=== PATIENT | male | born 1990 | race Caucasian/White ===

== ENCOUNTER 2020-10-17 22:31 | Emergency (ER) | payer OTHER, SELFPAY ==
[2020-10-17 22:47] VITALS: BP 141/89; PULSE 79; RESP 16; TEMP 36.1; O2SAT 96; BMI 47.3
--- NOTE | 2020-10-17 23:25 | ED.ABDPAIN ---
HPI - Abdominal Pain General Chief Complaint: Abdominal Pain Stated Complaint: abdominal pain Time Seen by Provider: 10/17/20 23:25 Source: patient Mode of arrival: ambulatory Limitations: no limitations History of Present Illness HPI narrative: Patient was moving a large rock 2 days ago noticed pain in the left lower abdomen without any significant swelling no nausea no vomiting pain increases on lifting his leg when he lays in the bed no diarrhea no hernia in the past Related Data Previous Rx's Medication Instructions Recorded ibuprofen 600 mg PO Q6H PRN #20 tab 10/17/20 Allergies Allergy/AdvReac Type Severity Reaction Status Date / Time bee pollen [bee stings] Allergy Anaphylaxis Verified 10/17/20 22:54 Review of Systems Review of Systems Constitutional : No Weight loss, No Fever, No Chills ENT/Mouth : No sore throat, No Rhinorrhea Eyes: No Eye Pain, No Swelling Cardiovascular : No Chest Pain, no palpitations Respiratory : No Cough, No Sputum, no shortness of breath Gastrointestinal : no Nausea, No Vomiting, No Diarrhea, + abdominal Pain, no black stools Genitourinary : No Dysuria, No Urinary Frequency Musculoskeletal : No joint pain, No Myalgias, No Joint Swelling Skin : No Skin Lesions, No rash Neuro : No Weakness, No Numbness, No Dizziness, No Headache Psych : No Anxiety/Panic, No Depression Heme/Lymph: No Bruising, No Lymphadenopathy Endocrine : No Polyuria, No Polydipsia All other systems reviewed and are negative Physical Exam Vital Signs: Vital Signs: Last Vital Signs Temp 96.9 F 10/17/20 22:47 Pulse 79 10/17/20 22:47 Resp 16 10/17/20 22:47 BP 141/89 H 10/17/20 22:47 Pulse Ox 96 10/17/20 22:47 Body Mass Index 47.3 Appearance: Alert. Oriented X3. No acute distress. Eyes: PERRLA, No Nystagmus ENT: Pharynx normal. Oral Mucosa moist Neck: Normal inspection. Neck supple. CVS: Normal heart rate and rhythm. Pulses normal. Respiratory: No respiratory distress. Equal air entry bilateral, no wheezing/rales/rhonchi Abdomen: Soft and slight tender left abdominal wall and left lower abdomen no hernia palpable no bruising Bowel sounds are present, no mass palpable, no CVA tenderness Skin: Skin warm and dry. Normal skin color. Normal skin turgor. Extremities: No lower extremity edema. No calf tenderness Neuro: Oriented X 3. No motor deficit. No sensory deficit.No cerebellar signs , cranial nerves II-XII intact MDM - Abdominal Pain MDM Narrative Medical decision making narrative: Patient is clinically abdominal wall muscle strain secondary to lifting no imaging required patient advised to follow-up with PCP take ibuprofen for pain Discharge Plan Discharge Clinical Impression: Abdominal wall strain Qualifiers: Encounter type: initial encounter Qualified Code(s): S39.011A - Strain of muscle, fascia and tendon of abdomen, initial encounter Patient Disposition: Home, Self-Care Instructions: Muscle Strain (ED) Additional Instructions: You have abdominal wall muscle strain, take ibuprofen for pain apply ice , avoid lifting heavy weight Prescriptions: New ibuprofen 600 mg tablet 600 mg PO Q6H PRN (Reason: pain) Qty: 20 RF: 0 PMFSH Past Medical History Medical History COVID-19 Social History Social History Advance Directives: No Advance Directives Information Provided: No
[2020-10-17] MEDS: oxyCODONE HCl Immed Release 5 MG TABLET 10 MG PO (23:54)
== END 2020-10-18 00:14 | disposition home or self-care (01) ==
PROVIDERS: Emergency Provider Internal Medicine
DX: S39.011A Strain of muscle, fascia and tendon of abdomen, initial encounter (principal); R10.32 Left lower quadrant pain; X50.0XXA Overexertion from strenuous movement or load, initial encounter; Y93.9 Activity, unspecified; Y92.9 Unspecified place or not applicable; Y99.9 Unspecified external cause status; Z79.899 Other long term (current) drug therapy; Z86.16 Personal history of COVID-19
CPT/HCPCS: 99283

== ENCOUNTER 2020-10-26 23:17 | Emergency (ER) | payer OTHER, SELFPAY ==
[2020-10-27 01:21] VITALS: BP 141/96; PULSE 78; RESP 16; TEMP 36.7; O2SAT 98; BMI 47.3
--- NOTE | 2020-10-27 02:51 | ED.SKABFB ---
HPI - Skin/Abscess/Foreign Bdy General Chief complaint: Skin/Abscess/Foreign Body Stated complaint: hives Time Seen by Provider: 10/27/20 02:51 Source: patient Mode of arrival: ambulatory History of Present Illness HPI narrative: Poison margot to the right upper extremity and left underside of abdomen, suspect transfer from his dog. Benadryl has been helping however instructions given for clothing and skin decontamination. Related Data Previous Rx's Medication Instructions Recorded ibuprofen 600 mg PO Q6H PRN #20 tab 10/17/20 Allergies Allergy/AdvReac Type Severity Reaction Status Date / Time bee pollen [bee stings] Allergy Anaphylaxis Verified 10/17/20 22:54 Review of Systems Review of Systems: pertinent positives and negatives as stated in the HPI 10 point review systems is otherwise negative. PMFSH Past Medical History Source: nursing notes reviewed Medical History COVID-19 Social History Social History Advance Directives: No Advance Directives Information Provided: No Physical Exam Vital Signs: Vital Signs: Last Vital Signs Temp 98.0 F 10/27/20 01:21 Pulse 78 10/27/20 01:21 Resp 16 10/27/20 01:21 BP 141/96 H 10/27/20 01:21 Pulse Ox 98 10/27/20 01:21 Body Mass Index 47.3 VITAL SIGNS: Reviewed. GENERAL: Well developed, well nourished, in no acute distress. HEAD: Normocephalic/atraumatic EYES: PERRLA, EOMI OROPHARYNX: no oral lesions noted, posterior pharynx clear LUNGS: Normal breath sounds. No adventitious sounds or accessory muscle use. SpO2<98> CARDIOVASCULAR: Regular rate and rhythm without noted murmurs ABDOMEN: Soft, non-tender, non-distended with bowel sounds. SKIN: Inspection of the skin reveals Papular rash noted to right forearm with an area of erythema at the right antecubital, and redness noted at the left underside of the pannus Course Course Course Narrative: 29-year-old male with history and clinical presentation consistent with likely poison margot exposure from the dogs, as patient denies any new foods or application lotions, soaps, new clothing. All this was explained to the patient and he acknowledges that this is likely. Discharge Plan Discharge Clinical Impression: Poison margot dermatitis Patient Disposition: Home, Self-Care Instructions: Poison Margot (ED), Cold Compress or Soak (ED) Additional Instructions: Follow-up with the primary care provider on Thursday for re-evaluation Return to the ER for acute worsening of symptoms. Prescriptions: No Action ibuprofen 600 mg tablet 600 mg PO Q6H PRN (Reason: pain) Qty: 20 RF: 0 Referrals: [facility] [Primary Care Provider] - 2 days Interventions: ED Discharge Assessment Last Done: 10/27/20 03:45 Discharge Date/Time: 10/27/20 03:46
== END 2020-10-27 03:46 | disposition home or self-care (01) ==
PROVIDERS: Emergency Provider Student in an Organized Health Care Education/Training Program
DX: L23.7 Allergic contact dermatitis due to plants, except food (principal); Z86.16 Personal history of COVID-19; Z79.899 Other long term (current) drug therapy
CPT/HCPCS: 99283

== ENCOUNTER 2020-10-29 13:50 | Outpatient (REF) | payer OTHER, SELFPAY ==
[2020-10-29 14:30] LABS: MANUAL DIFF FLAG NO
[2020-10-29 14:36] LABS: Basophils Percent Auto 0.4 % (0-2); Eosinophils Absolute Auto 0.3 X10*3/uL (0.0-0.4); Eosinophils Percent Auto 3.7 % (0-4); Hematocrit 46.6 % (42-52); Imm Gran Abs Auto 0.02 X10*3/uL (0.00-0.03); Imm Gran Pct Auto 0.3 % (0.0-0.4); Lymphocytes Absolute Auto 2.3 X10*3/uL (1.2-4.9); Mean Corpuscular HGB Conc 32.2 g/dl (31.0-36.0); Mean Corpuscular Hemoglobin 25.4 pg (27.0-33.0); Mean Corpuscular Volume 78.8 fL (80-98); Mean Platelet Volume 10.3 fL (9.4-12.4); Monocytes Absolute Auto 0.6 X10*3/uL (0.1-1.2); Monocytes Percent Auto 9.1 % (2-11); Neutrophils Absolute Auto 3.6 X10*3/uL (2.0-8.3); Neutrophils Percent Auto 52.5 % (45-73); Platelet Count 215 X10*3/uL (160-400); Red Blood Count 5.91 X10*6/uL (4.60-5.80); Red Cell Distribution Width 13.2 % (11.0-16.0); White Blood Count 6.8 X10*3/uL (4.8-10.8)
[2020-10-29 15:03] LABS: Alanine Aminotransferase 54 U/L (0-40); Albumin Level 4.4 g/dL (3.5-5.0); Alkaline Phosphatase 121 U/L (39-117); Anion Gap 12 (12-20); Aspartate Amino Transferase 37 U/L (5-37); Bilirubin Total 0.5 mg/dL (0.0-1.0); Blood Urea Nitrogen 11 mg/dL (9-16); Calcium 9.7 mg/dL (8.4-10.2); Carbon Dioxide 25 mmol/L (22-29); Chloride 108 mmol/L (96-108); Cholesterol 209 mg/dL; Estimated Glomerular Filt Rate > 60; Glucose Random 120 mg/dL (60-115); HDL Cholesterol 32 mg/dL; LDL Cholesterol Calculated 130 mg/dl; Potassium 4.3 mmol/L (3.3-5.1); Sodium 141 mmol/L (135-145); Total Protein 7.5 g/dL (6.5-8.0); Triglycerides 238 mg/dL
[2020-10-29 15:25] LABS: Thyroid Stimulating Hormone 2.45 uIU/mL (0.32-4.0)
== END 2020-10-29 13:51 | disposition home or self-care (01) ==
LOC: HO.LAB 13:50
PROVIDERS: PCP Internal Medicine; Visit Provider Internal Medicine
DX: Z00.01 Encounter for general adult medical examination with abnormal findings (principal); E66.01 Morbid (severe) obesity due to excess calories; I10 Essential (primary) hypertension; R21 Rash and other nonspecific skin eruption
CPT/HCPCS: 36415; 80053; 80061; 84443; 85025

== ENCOUNTER 2020-11-29 16:04 | Outpatient (REF) | payer OTHER, SELFPAY ==
[2020-11-29 17:13] LABS: Estimated Average Glucose 117 mg/dL; Hemoglobin A1c % 5.7 %
[2020-11-29 17:47] LABS: Alanine Aminotransferase 43 U/L (0-40); Albumin Level 4.5 g/dL (3.5-5.0); Alkaline Phosphatase 92 U/L (39-117); Anion Gap 13 (12-20); Aspartate Amino Transferase 32 U/L (5-37); Bilirubin Total 0.5 mg/dL (0.0-1.0); Blood Urea Nitrogen 13 mg/dL (9-16); Calcium 9.8 mg/dL (8.4-10.2); Carbon Dioxide 26 mmol/L (22-29); Chloride 107 mmol/L (96-108); Cholesterol 221 mg/dL; Estimated Glomerular Filt Rate > 60; Glucose Random 92 mg/dL (60-115); HDL Cholesterol 34 mg/dL; LDL Cholesterol Calculated 149 mg/dl; Potassium 4.7 mmol/L (3.3-5.1); Sodium 141 mmol/L (135-145); Total Protein 7.5 g/dL (6.5-8.0); Triglycerides 191 mg/dL
[2020-11-30 08:32] LABS: HIV AB/AG Nonreactive (Nonreactive); HIV Num 1 0.07 S/CO (0.00-0.99)
[2020-11-30 11:47] LABS: CT PCR NOT DETECTED (Not Detect.); NG PCR NOT DETECTED (Not Detect.)
[2020-12-05 19:27] LABS: HSV 1 IgM IFA Negative (Negative); HSV 2 IgM IFA Negative (Negative)
== END 2020-11-29 16:05 | disposition home or self-care (01) ==
LOC: HO.LAB 16:04
PROVIDERS: PCP Internal Medicine; Visit Provider Internal Medicine
DX: E78.2 Mixed hyperlipidemia (principal); I10 Essential (primary) hypertension; R73.01 Impaired fasting glucose; R74.01 Elevation of levels of liver transaminase levels; Z11.3 Encounter for screening for infections with a predominantly sexual mode of transmission
CPT/HCPCS: 80053; 80061; 83036; 86695; 86696; 87389; 87491; 87591

== ENCOUNTER 2025-03-07 08:23 | Outpatient (REF) | payer OTHER, SELFPAY ==
--- NOTE | ~2025-03-07 | XR_ITS ---
EXAMINATION: XR SHOULDER, LEFT CLINICAL INFORMATION: M25.512 - Pain in left shoulder COMPARISON: 07/24/2016. TECHNIQUE: Two views of the left shoulder. FINDINGS: Normal bone mineralization. No fracture, dislocation, or suspicious bone lesion. Normal alignment. The glenohumeral joint is normal. The AC joint is normal. There is a type II acromion. No undersurface spurring. The subacromial space is preserved. Remainder of the soft tissue and bony structures appear normal. XR/XR shoulder LT min 2V IMPRESSION: Normal left shoulder. Electronically signed by: Karan Blanca MD 03/07/2025 01:42 PM EDT
--- OUTSIDE RECORDS SUMMARY | 2025-03-08 08:42 | XMS_ITS | Clinical Summary ---
Author Organization [address] [place] [address] [place] [phone] Phone Care Team Providers Care Laboratory Technical Specialist Name Role Phone Kala Gan MD Primary Care Provider [phone] Allergies Active Allergy Reactions Criticality Noted Date Comments Bee Venom Protein (Honey Bee) 2024 Medications No known medications Encounters Date Type Department Care Team Description 02/02/2025 4:15 AM EDT Ancillary Procedure [facility] [address] [facility] [address] [place] [address] 01/08/2025 10:15 PM EDT Ancillary Procedure [facility] [address] [facility] [address] [place] [address] 12/07/2024 7:15 AM EDT Ancillary Procedure [facility] [address] [facility] [address] [place] [address] from Last 3 Months Surgical History Surgery [...] this topic Medical Devices Implanted Type Area Sign Language Interpreter Device Identifier Shelf Expiration Date Model / Serial / Lot Bsci-Crm [id number] Implanted:01/23 (Quantity not on file) Cardiac Loop Recorder [employer] CARD RHYTHM MGMT M301 / [id number] / Procedures Procedure Name Priority Date/Time Associated [...] period is included. Date Time Interrogation Session [id number] CV DEVICE CHECK Type Interrogation Session Remote Scheduled CV DEVICE CHECK Implantable Pulse Generator Sign Language Interpreter BSX CV DEVICE CHECK Implantable Pulse Generator Type ILR CV DEVICE CHECK Implantable Pulse Generator Model M301 CV DEVICE CHECK Implantable Pulse Generator Serial Number [id number] CV DEVICE CHECK Implantable Pulse Generator Implant Date 20230209 CV DEVICE CHECK Battery Status Beginning of Service CV DEVICE CHECK Atrial Tachy Statistic AT/AF [place] Percent 0.00 CV DEVICE CHECK Date of Service 2025-02-08 CV DEVICE CHECK Anatomical Region Laterality Modality Device Interroga tion 01/30/2025 12:2 3 AM EDT Impressions 02/01/2025 8:29 PM EDT Normal Remote: No Events * This is a normal remote diagnostic device check * Alerts or events: None * Battery data was reviewed * Battery status: ROBERAT, * Presenting rhythm reviewed * Heart Rate [...] [employer] [place] [employer] Care Teams Laboratory Technical Specialist Relationship Specialty Start Date End Date Kala Gan MD [address] [place] [address] [place] [address] PCP - General 01/24/15
--- OUTSIDE RECORDS SUMMARY | 2025-03-08 08:42 | XMS_ITS | Encounter Summary ---
Author Organization [facility] Address [address] [place] [address] Phone Care Team Providers Care Roller Mechanic Name Role Phone Kala Gan MD Primary Care Provider Encounter Details Date Type Department Care Team (Late st Contact Info) Description 08/21/2021 Documentation Only [facility] [address] [place] [address] Andrew Lauren MD [address] [facility] [address] [place] [address] Social History Tobacco Use Types [...] on filedocumented in this encounter Care Teams Roller Mechanic Relationship Specialty Start Date End Date Kala Gan MD [address] [place] [address] PCP - General Internal Medicine 08/14/21 documented as of this encounter
--- OUTSIDE RECORDS SUMMARY | 2025-03-08 08:42 | XMS_ITS | Clinical Summary ---
Author Organization [facility] Facility Address [address] [place] [address], [place] [address] Care Team Providers Care Technical Architect Name Role Phone Kala Gan MD Primary Care Provider [phone] Allergies Active Allergy Reactions Criticality Noted Date [...] Health Medicaid [employer] Medicaid Care Teams Technical Architect Relationship Specialty Start Date End Date Kala Gan MD [address] [place] [address] PCP - General Internal Medicine 08/14/21
== END 2025-03-07 08:24 | disposition home or self-care (01) ==
LOC: HO.HOSX 08:23
PROVIDERS: Visit Provider Orthopaedic Surgery
DX: M25.312 Other instability, left shoulder (principal)
CPT/HCPCS: 73030

== ENCOUNTER 2025-03-07 13:02 | Outpatient (AMB) | payer OTHER, SELFPAY ==
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
[2025-03-07 13:16] VITALS: BMI 47.8
--- OUTSIDE RECORDS SUMMARY | 2025-03-07 15:43 | XMS_ITS | Clinical Summary ---
Author Organization [address] [place] [address] [place] [address] Phone Care Team Providers Care Bilingual Sales Consultant Name Role Phone Kala Gan MD Primary Care Provider [phone] Allergies Active Allergy Reactions Criticality Noted Date Comments Bee Venom Protein (Honey Bee) 2024 Medications No known medications Encounters Date Type Department Care Team Description 02/02/2025 4:15 AM EDT Ancillary Procedure [facility] [address] [facility] [address] [place] [address] 01/08/2025 10:15 PM EDT Ancillary Procedure [facility] [address] [facility] [address] [place] [address] 12/07/2024 7:15 AM EDT Ancillary Procedure [facility] [address] [facility] [address] [place] [address] from Last 3 Months Surgical History Surgery Date Site/Laterality Comments OTHER SURGICAL HISTORY PROCEDURE: HISTORY OTHER; COMMENT: ankle surgery ,ligaments / tendons OTHER SURGICAL HISTORY PROCEDURE: HISTORY OTHER; COMMENT: testicular surgery Medical History Medical History Date Comments Severe obesity (CMS/HCC V24, CMS/HCC V28) DX:Severe obesity (HCC) Family History Medical History Relation Name Comments Hypertension Mother Other: heart attack Mother Other: heart disease Mother Relation Name Status Comments Mother Social History Tobacco Use Types Packs/Day Years Used Date Smoking Tobacco: Some Days Cigarettes Tobacco Cessation:Ready to Q uit: Not Asked; Counseling Given: Not Answered Alcohol Use Standard Drinks/Week Comments Never 0 (1 standard drink = 0.6 oz pur e alcohol) Sex and Gender Information Value Date Recorded Sex Assigned at Male 09/04/2024 5:07 PM EDT Legal Sex Male 2:56 PM EST Gender Identity Male 09/04/2024 5:07 PM EDT Sexual Orientation Not on file Obstetrics History Last Filed Vital Signs Vital Sign Reading Time Taken Comments Blood Pressure 137/92 09/04/2024 3:26 PM EDT Pulse 80 09/04/2024 3:26 PM EDT Temperature 36.7 C (98 F) 09/04/2024 3:26 PM EDT Respiratory Rate 16 09/04/2024 3:26 PM EDT Oxygen Saturation 97% 09/04/2024 3:26 PM EDT Inhaled Oxygen Concentration - - Weight 141 kg (310 lb) 09/04/2024 3:26 PM EDT Height 177.8 cm (5' 10 ) 09/04/2024 3:26 PM EDT Body Mass Index 44.48 09/04/2024 3:26 PM EDT Plan of Treatment Health Maintenance Due Date Last Done Comments Hepatitis A Vaccines (1 of 2 - Risk 2-dose series) 11/13/2010 Pneumococcal Vaccine: Pediatrics (0 to 5 Years) and At-Risk Patients (6 to 49 Years) (1 of 2 - PCV) 11/13/2010 HPV Vaccines (1 - 3-dose SCDM series) 11/13/2018 Cholesterol Screening (Lipid Panel) 04/23/2022 HIV Screening 04/23/2022 Hepatitis C Screening 04/23/2022 Social Influencers of Health Screening 04/23/2022 Depression Screening 05/25/2024 COVID-19 Vaccine ( - season) 2025 Influenza Vaccine (#1) 2025 DTaP,Tdap,and Td Vaccines (9 - Td or Tdap) 11/09/2029 11/10/2019, 01/13/2018, 09/23/2012, Additional history exists RSV Immunization Adult Patients (1 - 1-dose 75+ series) 11/13/2066 HIB Vaccines Aged Out 02/13/1993, 12/24, 07/16/1992 No longer eligible based on patient's age to complete this topic IPV Vaccines Completed 09/30/1995, 08/24, 01/13/1993, Additional history exists MMR Vaccines Completed 12/31/1995, 02/13/1993 Hepatitis B Vaccines Completed 03/15/1998, 09/13/1994, 08/13/1992, Additional history exists Varicella Vaccines Aged Out 07/30/1998 No longer eligible based on patient's age to complete this topic Meningococcal ACWY Vaccine Aged Out N o longer eligible based on patient's age to complete this topic Meningococcal B Vaccine Aged Out No l onger eligible based on patient's age to complete this topic RSV Immunization Patients Under 20 months Aged Out No longer eligible based on patient's age to complete this topic Medical Devices Implanted Type Area Experimental Psychologist Device Identifier Shelf Expiration Date Model / Serial / Lot Bsci-Crm [id number] Implanted:01/23 (Quantity not on file) Cardiac Loop Recorder [employer] CARD RHYTHM MGMT M301 / [id number] / Procedures Procedure Name Priority Date/Time Associated Diagnosis Comments CARDIAC DEVICE CHECK- REMOTE- MURJ Routine 02/02/2025 4:11 AM EDT CARDIAC DEVICE CHECK- REMOTE- MURJ Routine 01/08/2025 10:14 PM EDT CARDIAC DEVICE CHECK- REMOTE- MURJ Routine 12/07/2024 7:14 AM EDT from Last 3 Months Results * Cardiac device check - Remote- MURJ (02/02/2025 4:11 AM EDT) Only the most recent of3 resultswithin the time period is included. Date Time Interrogation Session [id number] CV DEVICE CHECK Type Interrogation Session Remote Scheduled CV DEVICE CHECK Implantable Pulse Generator Experimental Psychologist BSX CV DEVICE CHECK Implantable Pulse Generator Type ILR CV DEVICE CHECK Implantable Pulse Generator Model M301 CV DEVICE CHECK Implantable Pulse Generator Serial Number [id number] CV DEVICE CHECK Implantable Pulse Generator Implant Date 20230209 CV DEVICE CHECK Battery Status Beginning of Service CV DEVICE CHECK Atrial Tachy Statistic AT/AF Preston Percent 0.00 CV DEVICE CHECK Date of Service 2025-02-08 CV DEVICE CHECK Anatomical Region Laterality Modality Device Interroga tion 01/30/2025 12:2 3 AM EDT Impressions 02/01/2025 8:29 PM EDT Normal Remote: No Events * This is a normal remote diagnostic device check * Alerts or events: None * Battery data was reviewed * Battery status: ROBERTA, * Presenting rhythm reviewed * Heart Rate Histograms reviewed Narrative Procedure Note Jn Harris MD - 02/02/2025 IMPRESSION: Normal Remote: No Events * This is a normal remote diagnostic device check * Alerts or events: None * Battery data was reviewed * Battery status: ROBERTA, * Presenting rhythm reviewed * Heart Rate Histograms reviewed us Jn Harris MD CV IMPLANTABLE CARDIAC DEV ICE PROCEDURES Final Result from Last 3 Months Insurance [employer] Care Teams Bilingual Sales Consultant Relationship Specialty Start Date End Date Kala Gan MD [address] [place] [address] [place] [address] PCP - General 01/24/15
--- OUTSIDE RECORDS SUMMARY | 2025-03-07 15:43 | XMS_ITS | Clinical Summary ---
Author Organization [facility] Facility Address [address] [place] [address], [place] [address] Care Team Providers Care Manager Search Engine Name Role Phone Kala Gan MD Primary Care Provider Allergies Active Allergy Reactions Criticality Noted Date Comments Bee Venom Swelling 08/19/2021 Hydrochlorothiazide Rash Low 08/19/2021 Medications mometasone (Elocon) 0.1 % cream Apply topically 1 (one) time each day Active EPINEPHrine (EPIPEN) 0.3 MG/0.3ML injection syringe Inject 1 Syringe into the shoulder, thigh, or buttocks if needed for anaphylaxis Active triamcinolone (KENALOG) 0.5 % cream Apply topically 2 (two) times a day Active Active Problems Problem Noted Date Diagnosed Date Hypertension 08/19/2021 Social History Tobacco Use Types Packs/Day Years Used Date Smoking Tobacco: Former Smokeless Tobacco: Never Tobacco Cessation:Counseling Given: No Alcohol Use Standard Drinks/Week Comments Yes 0 (1 standard drink = 0.6 oz pur e alcohol) rarely Sex and Gender Information Value Date Recorded Sex Assigned at Not on file Legal Sex Male 2:31 PM EDT Gender Identity Not on file Sexual Orientation Not on file Last Filed Vital Signs Vital Sign Reading Time Taken Comments Blood Pressure 120/64 11/06/2021 3:11 PM EDT Pulse 93 11/06/2021 3:11 PM EDT Temperature - - Respiratory Rate - - Oxygen Saturation 97% 11/06/2021 3:11 PM EDT Inhaled Oxygen Concentration - - Weight 150 kg (330 lb 9.6 oz) 11/06/2021 3:11 PM EDT Height 177.8 cm (5' 10 ) 08/19/2021 2:01 PM EDT Body Mass Index 47.44 08/19/2021 2:01 PM EDT Plan of Treatment Health Maintenance Due Date Last Done Comments Hepatitis B Vaccine (1 of 3 - 19+ 3-dose series) 11/13/2010 Influenza Vaccine (#1) 2025 Pneumococcal Vaccine: Peds ( 0 to 5 Years) and At-Risk Patients (6 to 49 Years) Aged Out No longer eligible b ased on patient's age to complete this topic Insurance [facility] Medicaid [facility] Medicaid Care Teams Manager Search Engine Relationship Specialty Start Date End Date Kala Gan MD [address] [place] [address] PCP - General Internal Medicine 08/14/21
--- OUTSIDE RECORDS SUMMARY | 2025-03-07 15:43 | XMS_ITS | Encounter Summary ---
Author Organization [facility] Address [address] [place] [address] Phone Care Team Providers Care Crude Oil Treater Name Role Phone Kala Gan MD Primary Care Provider Encounter Details Date Type Department Care Team (Late st Contact Info) Description 08/21/2021 Documentation Only [facility] [address] [place] [address] Andrew Lauren MD [address] [facility] [address] [place] [address] Social History Tobacco Use Types Packs/Day Years Used Date Smoking Tobacco: Former Smokeless Tobacco: Never Alcohol Use Standard Drinks/Week Comments Yes 0 (1 standard drink = 0.6 oz pur e alcohol) rarely Sex and Gender Information Value Date Recorded Sex Assigned at Not on file Legal Sex Male 2:31 PM EDT Gender Identity Not on file Sexual Orientation Not on file COVID-19 Exposure Response Date Recorded In the last month, have you been in contact with someone who was confirmed or suspected to have Coronavirus / COVID-19? No / Unsure 08/20/2021 4:06 PM EDT documented as of this encounter Plan of Treatment Not on file documented as of this encounter Visit Diagnoses Not on filedocumented in this encounter Care Teams Crude Oil Treater Relationship Specialty Start Date End Date Kala Gan MD [address] [place] [address] PCP - General Internal Medicine 08/14/21 documented as of this encounter
== END 2025-03-07 13:26 | disposition home or self-care (01) ==
LOC: HO.HOS 13:03
PROVIDERS: PCP Internal Medicine; Visit Provider Orthopaedic Surgery
DX: M25.312 Other instability, left shoulder (principal)
CPT/HCPCS: 99203; G2211

== ENCOUNTER → 2025-03-07 13:07 | Outpatient (BNV) | payer OTHER, SELFPAY | PROVIDERS: Visit Provider Radiology Diagnostic Radiology | DX: M25.512 Pain in left shoulder (principal) | CPT/HCPCS: 73030 ==

== ENCOUNTER 2025-04-05 12:28 | Outpatient (REF) | payer OTHER, SELFPAY ==
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
--- NOTE | ~2025-04-05 | FL_ITS ---
EXAMINATION: XR ARTHROGRAM SHOULDER, LEFT CLINICAL INFORMATION: M25.312 - Other instability, left shoulder . Recommend left shoulder dislocations. COMPARISON: None available. TECHNIQUE: Following explaining fluoroscopy-guided left shoulder arthrogram procedure, benefits and risk or MRI can be performed, a written consent was obtained. Patient was placed supine on fluoroscopy table and anterior aspect of left shoulder was exposed. On the fluoroscopy a skin marker was placed along the anterior shoulder joint and single image obtained for recommendation. The area marked the skin was cleaned and draped in usual sterile manner with 2% chlorhexidine solution. 1% lidocaine was injected puncture site. A 20-gauge spinal needle was then inserted from the skin into the joint space and 1 mL of nonionic contrast injected and single image obtained for recommendation. Subsequently 0.1 mL of gadolinium diluted with 5 mL of 1% lidocaine and 5 mL of saline as a 10 mL volume was injected and needle withdrawn. Complete hemostasis achieved at puncture site. Patient tolerated procedure extremely well. Patient was sent to MRI for further imaging. FINDINGS: There are no fractures or dislocations. No joint effusion is identified. No bone, joint or soft tissue abnormality is demonstrated. FLUOROSCOPY TIME: 43 seconds DOSE AREA PRODUCT: 733.2 uGy-m2 (microgray-meter squared) FL/FL arthrogram shoulder LT IMPRESSION: Successful fluoroscopy-guided left shoulder arthrogram. Electronically signed by: Edward Grimaldo MD 04/05/2025 02:34 PM [facility]
--- OUTSIDE RECORDS SUMMARY | 2025-04-05 15:10 | XMS_ITS | Clinical Summary ---
Author Organization [facility] Facility Address [address] [place] [address], [place] [address] Care Team Providers Care Programs Assistant Name Role Phone Kala Gan MD Primary Care Provider [phone] Allergies Active Allergy Reactions Criticality Noted Date [...] Health Medicaid [facility] Medicaid Care Teams Programs Assistant Relationship Specialty Start Date End Date Kala Gan MD [address] [place] [address] PCP - General Internal Medicine 08/14/21
--- OUTSIDE RECORDS SUMMARY | 2025-04-05 15:10 | XMS_ITS | Encounter Summary ---
Author Organization [facility] Address [address] [place] [address] Phone Care Team Providers Care Director Of Materials Name Role Phone Kala Gan MD Primary Care Provider Encounter Details Date Type Department Care Team (Late st Contact Info) Description 08/21/2021 Documentation Only [facility] [address] [place] [address] Andrew Lauren MD [address] [facility] [address] [place] [address] Social History Tobacco Use Types [...] on filedocumented in this encounter Care Teams Director Of Materials Relationship Specialty Start Date End Date Kala Gan MD [address] [place] [address] PCP - General Internal Medicine 08/14/21 documented as of this encounter
--- OUTSIDE RECORDS SUMMARY | 2025-04-05 15:10 | XMS_ITS | Clinical Summary ---
Author Organization [address] [place] [address] Address [address] [place] [address] Phone Care Team Providers Care Svp Digital Sales Name Role Phone Kala Gan MD Primary Care Provider [phone] Allergies Active Allergy Reactions Criticality Noted Date Comments Bee Venom Protein (Honey Bee) 2024 Medications No known medications Encounters Date Type Department Care Team Description 03/17/2025 Telephone [facility] Cardiology [facility] [address] [facility] [address] [place] [address] Jn Harris MD 03/15/2025 3:30 PM EDT Ancillary Procedure [facility] [address] [facility] [address] [place] [address] 02/02/2025 4:15 AM EDT Ancillary Procedure [facility] [address] [facility] [address] [place] [address] 01/08/2025 10:15 PM EDT Ancillary Procedure [facility] [address] [facility] [address] [place] [address] from Last 3 Months Surgical History Surgery [...] 04/23/2022 Depression Screening 05/25/2024 COVID-19 Vaccine ( season) 2025 Influenza Vaccine (#1) 2025 DTaP,Tdap,and [...] this topic Medical Devices Implanted Type Area Combination Machine Tool Operator Device Identifier Shelf Expiration Date Model / Serial / Lot Bsci-Crm [id number] Implanted:01/23 (Quantity not on file) Cardiac Loop Recorder Ensenda CARD RHYTHM MGMT [id number] / [id number] / Procedures Procedure Name Priority Date/Time Associated Diagnosis Comments CARDIAC DEVICE CHECK- REMOTE- MURJ Routine 03/15/2025 3:28 PM EDT CARDIAC DEVICE CHECK- REMOTE- MURJ Routine 02/02/2025 4:11 AM EDT CARDIAC DEVICE CHECK- REMOTE- MURJ Routine 01/08/2025 10:14 PM EDT from Last 3 Months Results * Cardiac device check - Remote- MURJ (03/15/2025 3:28 PM EDT) Only the most recent of3 resultswithin the time period is included. Date Time Interrogation Session [id number] CV DEVICE CHECK Type Interrogation Session Remote Scheduled CV DEVICE CHECK Implantable Pulse Generator Combination Machine Tool Operator BSX CV DEVICE CHECK Implantable Pulse Generator Type ILR CV DEVICE CHECK Implantable Pulse Generator Model M301 CV DEVICE CHECK Implantable Pulse Generator Serial Number [id number] CV DEVICE CHECK Implantable Pulse Generator Implant Date 20230209 CV DEVICE CHECK Battery Status Beginning of Service CV DEVICE CHECK Atrial Tachy Statistic AT/AF [place] Percent 0.00 CV DEVICE CHECK Date of Service 2025-03-15 CV DEVICE CHECK Anatomical Region Laterality Modality Device Interroga tion 03/10/2025 11:2 6 AM EDT Impressions 03/15/2025 3:19 PM EDT Normal Remote: With Events * Events or Alerts: 2 * S-ECGs suggestive of Sinus Tachycardia vs SVT, rates up to 170 bpm, longest was 39 seconds * This is a normal remote diagnostic device check * Battery data was reviewed * Battery status: ROBERTA, * Presenting rhythm reviewed * Heart Rate Histograms reviewed Narrative Procedure Note Jn Harris MD - 03/15/2025 IMPRESSION: Normal Remote: With Events * Events or Alerts: 2 * S-ECGs suggestive of Sinus Tachycardia vs SVT, rates up to 170 bpm,longest was 39 seconds * This is a normal remote diagnostic device check * Battery data was reviewed * Battery status: ROBERTA, * Presenting rhythm reviewed * Heart Rate Histograms reviewed Jn Harris MD CV IMPLANTABLE CARDIAC DEV ICE PROCEDURES Final Result from Last 3 Months Insurance [facility] MEDICAID ADVANTAGE [address] [place] [address] Care Teams Svp Digital Sales Relationship Specialty Start Date End Date Kala Gan MD [address] [place] [address] [place] [address] PCP - General 01/24/15
== END 2025-04-05 12:29 | disposition home or self-care (01) ==
LOC: HO.XRAY 12:28
PROVIDERS: Visit Provider Orthopaedic Surgery
DX: M25.312 Other instability, left shoulder (principal)
CPT/HCPCS: 23350; 73040; 73222; A9585

== ENCOUNTER → 2025-04-05 13:06 | Outpatient (BNV) | payer OTHER, SELFPAY | PROVIDERS: Visit Provider Radiology Diagnostic Radiology | DX: M25.312 Other instability, left shoulder (principal) | CPT/HCPCS: 23350; 73040; 77002 ==

== ENCOUNTER 2025-05-11 14:37 | Outpatient (AMB) | payer OTHER, SELFPAY ==
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
[2025-05-11 14:41] VITALS: BMI 47.8
--- OUTSIDE RECORDS SUMMARY | 2025-05-11 18:46 | XMS_ITS | Clinical Summary ---
Author Organization [facility] Facility Address [address] [place] [address], [place] [address] Care Team Providers Care Control Panel Operator Name Role Phone Kala Gan MD Primary [...] Health Medicaid [facility] Medicaid Care Teams Control Panel Operator Relationship Specialty Start Date End Date Kala Gan MD [address] [place] [address] PCP - General Internal Medicine 08/14/21
--- OUTSIDE RECORDS SUMMARY | 2025-05-11 18:46 | XMS_ITS | Clinical Summary ---
Author Organization [address] [facility] Address [address] [place] [address] Phone Care Team Providers Care Speed Reading Teacher Name Role Phone Kala Gan MD Primary Care Provider [phone] Allergies Active Allergy Reactions Criticality Noted Date Comments Bee Venom Protein (Honey Bee) 2024 Medications No known medications Encounters Date Type Department Care Team Description 05/01/2025 8:10 AM EST Ancillary Procedure [facility] Cardiology [facility] [address] [place] [address] 04/06/2025 10:50 AM EST Ancillary Procedure [facility] Cardiology [facility] [address] [place] [address] 04/06/2025 Telephone [facility] Cardiology [facility] [address] [place] [address] Juany Meza PA 03/17/2025 Telephone [facility] Cardiology [facility] [address] [place] [address] [address] [place] [address] Jn Harris MD 03/15/2025 3:30 PM EDT Ancillary Procedure [facility] Cardiology [facility] [address] [place] [address] from Last 3 Months Surgical History Surgery [...] PM EDT Sexual Orientation Not on file Last Filed [...] ( season) 2025 Influenza Vaccine (#1) 2025 Hypertension/CHF/CAD Annual BMP Blood Test 04/06/2025 DTaP,Tdap,and Td Vaccines (9 - Td or [...] this topic Medical Devices Implanted Type Area Surgical Pathologist Device Identifier Shelf Expiration Date Model / Serial / Lot Bsci-Crm [id number] Implanted:01/23 (Quantity not on file) Cardiac Loop Recorder AffinityClick CARD RHYTHM MGMT M301 / [id number] / Procedures Procedure Name Priority Date/Time Associated Diagnosis Comments CARDIAC DEVICE CHECK- REMOTE- MURJ Routine 05/01/2025 8:08 AM EST CARDIAC DEVICE CHECK- REMOTE- MURJ Routine 04/06/2025 10:49 AM EST CARDIAC DEVICE CHECK- REMOTE- MURJ Routine 03/15/2025 3:28 PM EDT from Last 3 Months Results * Cardiac device check - Remote- MURJ (05/01/2025 8:08 AM EST) Only the most recent of3 resultswithin the time period is included. Date Time Interrogation Session [id number] CV DEVICE CHECK Type Interrogation Session Remote Scheduled CV DEVICE CHECK Implantable Pulse Generator Surgical Pathologist BSX CV DEVICE CHECK Implantable Pulse Generator Type ILR CV DEVICE CHECK Implantable Pulse Generator Model M301 CV DEVICE CHECK Implantable Pulse Generator Serial Number [id number] CV DEVICE CHECK Implantable Pulse Generator Implant Date 20230209 CV DEVICE CHECK Battery Status Beginning of Service CV DEVICE CHECK Atrial Tachy Statistic AT/AF [place] Percent 0.00 CV DEVICE CHECK Date of Service 2025-04-15 CV DEVICE CHECK Anatomical Region Laterality Modality Device Interroga tion 04/10/2025 8:30 AM EST Impressions 05/01/2025 7:59 AM EST Normal Remote: No Events * This is a normal remote diagnostic device check * Alerts or events: None * Battery data was reviewed * Battery status: ROBERTA, * Presenting rhythm reviewed * Heart Rate Histograms reviewed Normal Remote: No Events * This is a normal remote diagnostic device check * Alerts or events: None * Battery data was reviewed * Battery status: ROBERTA, * Presenting rhythm reviewed * Heart Rate Histograms reviewed Additional Notes: * Episodes previously noted * Narrative Procedure Note Jn Harris MD - 05/01/2025 IMPRESSION: Normal Remote: No Events * This is a normal remote diagnostic device check * Alerts or events: None * Battery data was reviewed * Battery status: ROBERTA, * Presenting rhythm reviewed * Heart Rate Histograms reviewed Normal Remote: No Events * This is a normal remote diagnostic device check * Alerts or events: None * Battery data was reviewed * Battery status: ROBERTA, * Presenting rhythm reviewed * Heart Rate Histograms reviewed Additional Notes: * Episodes previously noted * Jn Harris MD CV IMPLANTABLE CARDIAC DEV ICE PROCEDURES Final Result from Last 3 Months Insurance [facility] MEDICAID ADVANTAGE Care Teams Speed Reading Teacher Relationship Specialty Start Date End Date Adlakha, Kala, MD [address] [place] [address] [place] [address] PCP - General 01/24/15
--- OUTSIDE RECORDS SUMMARY | 2025-05-11 18:46 | XMS_ITS | Encounter Summary ---
Author Organization [facility] Address [address] [place] [address] Phone Care Team Providers Care Business Analyst Ecommerce Name Role Phone Kala Gan MD Primary Care Provider Encounter Details Date Type Department Care Team (Late st Contact Info) Description 08/21/2021 Documentation Only [facility] [address] [place] [address] Andrew Lauren MD [address] [facility] [address] [place] [address] Social History Tobacco Use Types [...] on filedocumented in this encounter Care Teams Business Analyst Ecommerce Relationship Specialty Start Date End Date Kala Gan MD [address] [place] [address] PCP - General Internal Medicine 08/14/21 documented as of this encounter
== END 2025-05-11 15:19 | disposition home or self-care (01) ==
LOC: HO.HOS 14:38
PROVIDERS: Visit Provider Orthopaedic Surgery
DX: M25.312 Other instability, left shoulder (principal)
CPT/HCPCS: 99214